=== PATIENT | male | born 1995 | race Two or more races ===

== ENCOUNTER 2019-09-06 13:09 | Emergency (ER) | payer OTHER ==
[~2019-09-06] VITALS: Ht 190.5 cm; Wt 108.9 kg
--- NOTE | 2019-09-06 13:10 | NUR ---
PT [facility]IB[facility] AND [employer] C/O AGITATIN PER EMS "PT'S PARENTS IS OTW TO PSYCH FACILITY PT BECOMES AGGRESSIVE AND WANTS TO JUMP OUT OF THE CAR" PT IS AAOX1, NOT IN RESPIRATORY DISTRESS, NOTED AGITATION AND RESTLESSNESS, PT IS ON 4 PT RESTRAINT PER ER MD ORDER, HOOKED TO MONITOR, KEPT RESTED AND COMFORTABLE, SITTER AT BEDSIDE, WILL CONTINUE TO MONITOR.
--- NOTE | 2019-09-06 13:15 | NUR ---
SEEN AND EXAMINED BY .
[2019-09-06] MEDS ORDERED: OLANZAPINE 10 MG VIAL IM ONE ×2 (13:16→13:30)
[2019-09-06] MEDS ORDERED: LORAZEPAM INJ 2 MG/ML VIAL ONE (13:18)
[2019-09-06] MEDS ORDERED: LORAZEPAM INJ 2 MG/ML VIAL IM ONE (13:30)
[2019-09-06 13:59] LABS: BASOPHILS # (AUTO) 0.1 /CMM (0.0-0.2); BASOPHILS % (AUTO) 0.7 % (0.0-2.0); EOSINOPHILS % (AUTO) 2.8 % (0.0-6.0); HEMATOCRIT 50 % (39-51); LYMPHOCYTES # (AUTO) 1.4 /CMM (0.8-4.8); LYMPHOCYTES % (AUTO) 19.6 % (20.0-44.0); MEAN CORPUSCULAR HGB CONC 34 g/dl (31.0-36.0); MEAN CORPUSCULAR VOLUME 96 fL (80-96); MONOCYTES # (AUTO) 0.4 /CMM (0.1-1.30); MONOCYTES % (AUTO) 6.2 % (2.0-12.0); NEUTROPHILS # (AUTO) 5.1 /CMM (1.8-8.9); NEUTROPHILS % (AUTO) 70.7 % (43.0-81.0); PLATELET COUNT (AUTO) 328 /CMM (150-450); RED BLOOD CELL COUNT(AUTO) 5.21 MIL/uL (4.5-6.0); WHITE BLOOD COUNT (AUTO) 7.2 K/uL (4.3-11.0)
[2019-09-06 14:06] LABS: CALCIUM, SERUM 9.5 mg/dL (8.5-10.1); CARBON DIOXIDE 23 mmol/L (21-32); CHLORIDE 104 mmol/L (98-107); CREATININE 1.3 mg/dL (0.6-1.3); GLUCOSE 135 mg/dL (74-106); POTASSIUM 3.1 mmol/L (3.5-5.1); SODIUM SERUM 142 mmol/L (136-145); UREA NITROGEN, BLOOD 11 mg/dL (7-18)
[2019-09-06 14:12] LABS: ALANINE AMINOTRANSFERASE 35 U/L (12-78); ALBUMIN 4.7 g/dL (3.4-5.0); ALCOHOL, BLOOD < 3 mg/dL (0-0); ALKALINE PHOSPHATASE 71 U/L (46-116); ASPARTATE AMINOTRANSFERASE 15 U/L (15-37); BILIRUBIN,DIRECT 0.2 mg/dL (0.0-0.2); TOTAL PROTEIN, SERUM 8.3 g/dL (6.4-8.2)
[2019-09-06 14:13] LABS: ACETAMINOPHEN < 2 ug/ml (10-30); SALICYLATE < 2.8 mg/dL (2.8-20.0)
[2019-09-06 17:27] LABS: APPEARANCE,URINE Slightly Cloudy (CLEAR); BILIRUBIN,URINE SMALL (NEGATIVE); BLOOD, URINE Trace-intact Ery/uL (NEGATIVE); COLOR,URINE Dark (YELLOW); KETONES,URINE Negative (NEGATIVE); LEUKOCYTE ESTERASE ,URINE Negative (NEGATIVE); NITRITE, URINE Negative (NEGATIVE); PROTEIN,URINE 30 mg/dl (NEGATIVE); UGLUCOSE Negative (NEGATIVE); UROBILINOGEN,URINE 0.2 EU/dL (0.2)
[2019-09-06 17:48] LABS: SQUAMOUS EPITHELIAL CELL,UR Few /HPF (None Seen)
[2019-09-06 17:49] LABS: BACTERIA,URINE Rare /HPF (None Seen); RBC,URINE 0-2 /HPF (0-2); WBC,URINE 0-2 /HPF (0-3)
[2019-09-06] MEDS ORDERED: POTASSIUM CHLORIDE 20 MEQ TAB.PRT.SR PO ONE ×2 (18:30→18:35)
--- NOTE | 2019-09-06 18:48 | NUR ---
POTASSIUM ORDER RECEIVED. PT STILL SLEEPING. UNABLE TO ARROUSE. WILL GIVEN MEDS UPON WAKING UP
--- NOTE | 2019-09-06 21:49 | NUR ---
PT RESTING COMFORTABLY IN BED. VSS. NO ACUTE DISTRESS NOTED. SITTER AT BEDSIDE FOR SAFETY
--- NOTE | 2019-09-07 03:36 | NUR ---
PT RESTING COMFORTABLY IN BED. VSS. NO ACUTE DISTRESS NOTED. SITTER AT BEDSIDE FOR SAFETY
--- NOTE | 2019-09-07 06:10 | NUR ---
Pt requesting to be discharged home. Pt ok to be discharged home per Dr Vasquez. Patient is awake and alert to self, day, and place. Pt denies si/hi. Patient discharged to home in stable condition. Written and verbal after care instructions given. Patient verbalizes understanding of instruction. Pt father called to pick patient up.
[2019-09-07 06:54] VITALS: BP 132/78
== END 2019-09-07 06:54 | disposition home or self-care (01) ==
LOC: ER 13:15
DX: F28 Other psychotic disorder not due to a substance or known physiological condition (principal); F19.10 Other psychoactive substance abuse, uncomplicated
CPT/HCPCS: 36415; 80048; 80076; 80305; 80307; 80329; 81001; 85025; 96372 ×2; 99284; G0480; J2060; J3490; 81000-TC

== ENCOUNTER 2019-09-11 13:54 | Emergency (ER) | payer OTHER ==
[~2019-09-11] VITALS: Ht 185.4 cm; Wt 93.9 kg
--- NOTE | 2019-09-11 13:55 | NUR ---
BIB FATHER FOR ETOH AND DRUG ABUSE. TO ER BED 13, HOOKED TO MONITOR, BREATHING EVEN AND UNLABORED. NOTED WITH [employer]ZA[employer] BEH[employer]IOR AND VISUAL HALLUCINATIONS. AWAITING MD MARTÍNEZ.
--- NOTE | 2019-09-11 14:00 | NUR ---
DR MAY AT BEDSIDE
--- NOTE | 2019-09-11 14:12 | NUR ---
DR CERNA AT BEDSIDE
[2019-09-11 14:37] LABS: BASOPHILS % (AUTO) 0.5 % (0.0-2.0); EOSINOPHILS % (AUTO) 3.2 % (0.0-6.0); HEMATOCRIT 48 % (39-51); HEMOGLOBIN 16.2 g/dL (13.5-17.5); LYMPHOCYTES # (AUTO) 1.8 /CMM (0.8-4.8); LYMPHOCYTES % (AUTO) 27.6 % (20.0-44.0); MEAN CORPUSCULAR HGB CONC 34 g/dl (31.0-36.0); MEAN CORPUSCULAR VOLUME 96 fL (80-96); MONOCYTES # (AUTO) 0.4 /CMM (0.1-1.30); MONOCYTES % (AUTO) 5.4 % (2.0-12.0); NEUTROPHILS # (AUTO) 4.2 /CMM (1.8-8.9); NEUTROPHILS % (AUTO) 63.3 % (43.0-81.0); PLATELET COUNT (AUTO) 359 /CMM (150-450); RED BLOOD CELL COUNT(AUTO) 4.95 MIL/uL (4.5-6.0); WHITE BLOOD COUNT (AUTO) 6.7 K/uL (4.3-11.0)
[2019-09-11 14:45] LABS: CALCIUM, SERUM 9.5 mg/dL (8.5-10.1); CARBON DIOXIDE 25 mmol/L (21-32); CHLORIDE 103 mmol/L (98-107); GLUCOSE 102 mg/dL (74-106); POTASSIUM 3.7 mmol/L (3.5-5.1); SODIUM SERUM 140 mmol/L (136-145); UREA NITROGEN, BLOOD 13 mg/dL (7-18)
[2019-09-11 14:50] LABS: ALANINE AMINOTRANSFERASE 29 U/L (12-78); ALBUMIN 4.5 g/dL (3.4-5.0); ALCOHOL, BLOOD < 3 mg/dL (0-0); ALKALINE PHOSPHATASE 79 U/L (46-116); ASPARTATE AMINOTRANSFERASE 20 U/L (15-37); BILIRUBIN,DIRECT 0.1 mg/dL (0.0-0.2); BILIRUBIN,TOTAL 0.6 mg/dL (0.2-1.0); TOTAL PROTEIN, SERUM 8.3 g/dL (6.4-8.2)
[2019-09-11 14:51] LABS: ACETAMINOPHEN 0 ug/ml (10-30); SALICYLATE 1.4 mg/dL (2.8-20.0)
--- NOTE | 2019-09-11 15:06 | NUR ---
PATIENT IN BED, AWAKE, STILL HAVING VISUAL HALLUCINATIONS, NOTED SHOUTING FOR NO REASON. HOOKED TO MONITOR, KEPT SAFE AND COMFORTABLE.
[2019-09-11 16:26] LABS: APPEARANCE,URINE Clear (CLEAR); BILIRUBIN,URINE Negative (NEGATIVE); BLOOD, URINE Trace-intact Ery/uL (NEGATIVE); COLOR,URINE Yellow (YELLOW); KETONES,URINE 15 (NEGATIVE); LEUKOCYTE ESTERASE ,URINE Trace (NEGATIVE); NITRITE, URINE Negative (NEGATIVE); PROTEIN,URINE 30 mg/dl (NEGATIVE); UGLUCOSE Negative (NEGATIVE); UROBILINOGEN,URINE 0.2 EU/dL (0.2)
[2019-09-11 16:39] LABS: BACTERIA,URINE Few /HPF (None Seen); SQUAMOUS EPITHELIAL CELL,UR Rare /HPF (None Seen)
--- NOTE | 2019-09-11 17:32 | NUR ---
PATIENT IN BED, AWAKE, STILL HAVING VISUAL HALLUCINATIONS, NOTED SHOUTING FOR NO REASON. HOOKED TO MONITOR, KEPT SAFE AND COMFORTABLE.
--- NOTE | 2019-09-11 17:54 | NUR ---
CALLED [employer] HILARIO BRICE.
[2019-09-11] MEDS ORDERED: HALOPERIDOL LACTATE INJ 5 MG/ML VIAL ONE (17:56)
[2019-09-11] MEDS ORDERED: HALOPERIDOL LACTATE INJ 5 MG/ML VIAL IM ONE (18:00)
[2019-09-11] MEDS ORDERED: LORAZEPAM INJ 2 MG/ML VIAL ONE (18:24)
[2019-09-11] MEDS ORDERED: LORAZEPAM INJ 2 MG/ML VIAL IM ONE (18:30)
--- NOTE | 2019-09-11 19:12 | NUR ---
PATIENT AWAKE, PATIENT CALM IN BED. HOOKED TO MONITOR, KEPT SAFE AND COMFORTABLE.
--- NOTE | 2019-09-11 21:00 | NUR ---
[facility]OSS BABS MILLER 1 HOUR
--- NOTE | 2019-09-11 21:36 | NUR ---
PATIENT IS SLEEPING. EASILY AROUSABLE. CONNECTED TO MONITOR. VSS. SITTER AT BEDSIDE.
--- NOTE | 2019-09-12 00:07 | NUR ---
Patient is resting comfortably in bed with eyes closed. Easily aroused. VSS.
--- NOTE | 2019-09-12 06:11 | NUR ---
pt called father. father on his way.
[2019-09-12 06:30] VITALS: BP 129/82
--- NOTE | 2019-09-12 06:31 | NUR ---
Patient is ambulatory with a steady gait.
--- NOTE | 2019-09-12 06:31 | NUR ---
Patient discharged to home in stable condition. Written and verbal after care instructions given. Patient verbalizes understanding of instruction.
== END 2019-09-12 06:31 | disposition home or self-care (01) ==
LOC: ER 13:57
DX: F28 Other psychotic disorder not due to a substance or known physiological condition (principal)
CPT/HCPCS: 36415; 80048; 80076; 80305; 80307; 80329; 81001; 85025; 96372 ×2; 99285; G0480; J1630; J2060; 81000-TC